=== PATIENT | male | born 1940 | race Caucasian/White ===

== ENCOUNTER → 2016-12-17 | Outpatient (CLI) | payer MEDICARE, OTHER ==
[~2016-12-17] MED LIST: ALLOPURINOL300 MG PO; ASPIRIN81 M2 PO; AVALIDE 300-12.1 TAB PO; EC-NAPROSYN500 MG PO; HYDROCODONE-APA1 T30 PO; LISINOPRIL-HCTZ1 T14 PO; MELOXICAM15 MG PO; METOPROLOL ER PO; NABUMETONE PO; TOPROL XL PO; ZOCOR20 MG PO
--- NOTE | ~2016-12-17 | US37 ---
[facility] A Service of [place] & [facility] [place] RADIOLOGY TEXT RESULTS PATIENT: BESSY PLEITEZ LOCATION: SNIV : 42 UNIT #: [id number] AGE: [address]: Tomás Rodas MD SEX: M ORDER DR: [id number] [place] [id number] O MR#: [id number] Acc #: [id number] NAME: BESSY PLEITEZ. : 1940 SEX: M STUDY DATE/TIME: 12/17/2016 8:31 UNIT: [facility] ROOM: STUDY DESCRIPTION: US Carotid W/Doppler Bilateral Attending Physician: Tomás Rodas M.D. Referring Physician: Tomás Rodas M.D. Ordering Physician: Tomás Rodas M.D. Primary Care Physician: Tomás Rodas M.D. MEDICAL IMAGING REPORT This report is preliminary unless electronic signature is present. EXAM Carotid ultrasound 12/17/2016 HISTORY Calcification. Vertigo calcifications of left carotid. FINDINGS Real-time ultrasonography of the cervical carotid and vertebral arteries performed. Kat-scale color Doppler Doppler pulse-wave interrogation utilized. Carotid flow evaluated using methodology based upon NASCET criteria. Atherosclerotic plaques seen. Right common carotid artery, carotid bulb, proximal internal carotid artery, left carotid bulb and internal carotid artery. Peak systolic velocities on the right are as follows: Common carotid artery 0.708 m/sec, internal carotid artery 0.64 meters per second in proximal segment artery, external carotid artery 1.49 meters per second. Antegrade flow in the right vertebral artery. Right IC/CC ratio 0.7. On the left peak systolic velocities as follows: Common carotid artery 0.73 m/sec, internal carotid artery 1.28 meters per second in the distal segment of the artery, external carotid artery 0.97 m/sec. There is antegrade flow in the left vertebral artery. Left IC/CC ratio 0.7. The bilateral Doppler pulse waveforms are within normal limits. The appearance of the Doppler pulse-wave interrogation raises the possibility of irregular cardiac rhythm. Please correlate with formal EKG. IMPRESSION 1. 50% to 69% luminal narrowing suggested in the distal left internal carotid artery using methodology based upon NASCET criteria. 2. There is no evidence of hemodynamically significant luminal narrowing in the right cervical internal carotid artery. 3. Elevated peak systolic velocity in the right external carotid artery [facility]. [facility] A Service of [place] & [facility] [place] RADIOLOGY TEXT RESULTS PATIENT: BESSY PLEITEZ LOCATION: SN : 41 UNIT #: [id number] AGE: [address]: Tomás Rodas MD SEX: M ORDER DR: could be a reflection of hemodynamically significant luminal narrowing in the right external carotid artery. 4. Antegrade flow in both vertebral arteries. 5. Scattered atherosclerotic plaque bilaterally. 6. Appearance of the Doppler pulse-wave interrogation portion of the examination raises the possibility of irregular cardiac rhythm. Please correlate with clinical examination and formal EKG. Dictated by... Gage Hickman M.D. THIS IS AN ELECTRONICALLY VERIFIED REPORT Gage Hickman M.D. at 12/17/2016 6:04 PM CAROLINE/suresh TD: 12/17/2016 17:51 JOB #: [id number] MEDICAL IMAGING REPORT Page 1 of 1
== END | disposition home or self-care (01) ==
LOC: SNIV 08:26
DX: I65.22 Occlusion and stenosis of left carotid artery (principal); I65.23 Occlusion and stenosis of bilateral carotid arteries
CPT/HCPCS: 93880

== ENCOUNTER → 2017-01-14 | Outpatient (CLI) | payer MEDICARE, OTHER ==
--- NOTE | ~2017-01-14 | US11 ---
[facility] A Service [facility] RADIOLOGY TEXT RESULTS PATIENT: BESSY PLEITEZ LOCATION: [facility] : 41 UNIT #: [id number] AGE: [address]: Jarrett Borges MD SEX: M ORDER DR: [id number] [facility] [address] [place], [place] [address] [id number] O MR#: [id number] Acc #: [id number] NAME: BESSY PLEITEZ. : 1940 SEX: M STUDY DATE/TIME: 01/14/2017 8:49 UNIT: [facility] ROOM: STUDY DESCRIPTION: US Aorta Duplex Complete Attending Physician: Jarrett Borges M.D. Referring Physician: Jarrett Borges M.D. Ordering Physician: Jarrett Borges M.D. Primary Care Physician: Tomás Rodas M.D. MEDICAL IMAGING REPORT This report is preliminary unless electronic signature is present EXAM Ultrasound of the aorta, 01/14/2017. HISTORY Abdominal aortic aneurysm screening. FINDINGS High-resolution B-mode imaging and color flow Doppler analysis was performed of the abdominal aorta and iliac arteries in longitudinal and transverse views. The abdominal aorta measures 2.6 cm in greatest diameter in its proximal segment, 2.3 cm in greatest diameter in its mid segment and 2.3 cm in greatest diameter in its distal segment. The right common iliac artery measures about 10 mm in diameter. The left common iliac artery measures about 14 mm in diameter. There is no focal elevation of Doppler velocities at any level to indicate significant stenosis. IMPRESSION Normal examination of the abdominal aorta and iliac arteries. No aneurysm is demonstrated. Dictated by... Lev Jones M.D. THIS IS AN ELECTRONICALLY VERIFIED REPORT Lev Jones M.D. at 01/16/2017 7:41 AM SBS/bd TD: 01/14/2017 13:59 JOB #: [id number] MEDICAL IMAGING REPORT [facility] A Service [facility] RADIOLOGY TEXT RESULTS PATIENT: BESSY PLEITEZ [facility] #: [id number] : 41 UNIT #: [id number] AGE: [address]: Jarrett Borges MD SEX: M ORDER DR: Page 1 of 1 COPY
== END | disposition home or self-care (01) ==
LOC: CGUS 07:30
DX: I65.23 Occlusion and stenosis of bilateral carotid arteries (principal)
CPT/HCPCS: 93978

== ENCOUNTER → 2017-01-23 | Outpatient (CLI) | payer MEDICARE, OTHER ==
--- NOTE | ~2017-01-23 | TH ---
Unit #: [id number] #: [id number] Patient: BESSY PLEITEZ [id number] [facility]. [address] [address] [id number] O MR#: [id number] NAME: BESSY PLEITEZ : 1940 SEX: M STUDY DATE/TIME: 01/23/2017 UNIT: [facility] ROOM: STUDY DESCRIPTION: Exercise stress test - Nuclear Attending Physician: Darrick Jacobson M.D. Referring Physician: Darrick Jacobson M.D. Primary Care Physician: Tomás Rodas M.D. CARDIOLOGY REPORT PROCEDURE PERFORMED Exercise Cardiolite stress test - Nuclear portion. PROCEDURE Using technetium 99m-labeled Cardiolite, rest and stress SPECT images were obtained. Multiple SPECT images were obtained in various views, including horizontal and vertical long axis and short axis views of the left ventricle. Images were obtained by gated SPECT method. Patient was administered 10.60 mCi of Cardiolite at rest. Patient was administered 34.6 mCi of Cardiolite at peak exercise. Total exercise time is 7 minutes. On the stress images, there is a small area of mildly decreased tracer uptake activity inferiorly. The rest images also show a small area of mildly decreased tracer uptake activity inferiorly. Comparing the rest and stress images, there is no obvious stress-induced ischemia noted. There is a small area of predominantly fixed defect seen inferiorly of unclear significance. The left ventricular ejection fraction is calculated to be 60%. There is no focal wall motion abnormality seen. CONCLUSION 1. No obvious stress-induced ischemia noted. 2. There is a small area of predominantly fixed defect seen inferiorly of unclear significance. 3. The left ventricular ejection fraction is calculated to be 60%. 4. There is no focal wall motion abnormality seen. 5. Normal exercise Cardiolite stress test. 6. Technically limited study due to patient's body habitus. Clinical correlation is requested. Dictated by... Desean King TD: 01/23/2017 15:25 JOB #: [id number] Unit #: [id number] #: [id number] Patient: BESSY PLEITEZ CARDIOLOGY REPORT Page 1 of 1 X Cecy Rojas MD <ELECTRONICALLY SIGNED> 02/12/17 1524 CARDIOLOGY REPORT
--- NOTE | ~2017-01-23 | ST ---
Unit #: [id number] #: [id number] Patient: BESSY PLEITEZ [id number] [address] [address] [id number] O MR#: [id number] NAME: BESSY PLEITEZ : 1940 SEX: M STUDY DATE/TIME: 01/23/2017 UNIT: [facility] ROOM: STUDY DESCRIPTION: Exercise stress test Attending Physician: Darrick Jacobson M.D. Referring Physician: Darrick Jacobson M.D. Primary Care Physician: Tomás Rodas M.D. CARDIOLOGY REPORT PROCEDURE PERFORMED Exercise Cardiolite stress test. PROCEDURE BASELINE EKG: Sinus bradycardia, heart rate 52 beats per minute, questionable Q waves in V1, low voltage in V1 and 2, poor R wave progression, premature atrial contraction. Patient walked on the treadmill for 7 minutes utilizing Narinder protocol, achieving a workload of 7.60 METS. Ninety-two percent of maximum target heart rate achieved at 134 beats per minute with a maximum blood pressure response of 180/80 mmHg. EKG during the test was equivocal to baseline. No acute ischemic changes. The patient had no complaints of chest pain, palpitations or dizziness. Had increased shortness of breath and fatigue, which resolved in the recovery phase. It is noted patient still continued to have frequent PACs. IMPRESSION 1. Functional class 3 with a workload of 7.60 METS. 2. Patient walked for 7 minutes achieving 92% of maximum target heart rate at 134 beats per minute with a maximum blood pressure response of 180/80 mmHg. 3. EKG during the test was equivocal to baseline. No acute ischemic changes. 4. It is noted that patient's blood pressure decreased down to 143/79 mmHg at the end of recovery phase. 5. Patient had no complaints of chest pain, palpitations or dizziness. Had increased shortness of breath and fatigue, which resolved in recovery phase. 6. EKG during the test was equivocal to baseline. Did continue to have PACs. 7. Cardiolite was injected at maximum target heart rate. Radionuclide test pending. Please correlate with nuclear images. Dictated by... Kanika Lay A.P.R.NManuel for Desean King/jose enrique Unit #: [id number] #: [id number] Patient: BESSY PLEITEZ RAVEN TD: 01/23/2017 10:56 JOB #: [id number] CARDIOLOGY REPORT Page 1 of 1 X Kanika Lay APRN CARDIOLOGY REPORT
== END | disposition home or self-care (01) ==
LOC: CNUC 06:55
DX: I49.9 Cardiac arrhythmia, unspecified (principal); I10 Essential (primary) hypertension; I71.4 Abdominal aortic aneurysm, without rupture; I65.22 Occlusion and stenosis of left carotid artery; I77.9 Disorder of arteries and arterioles, unspecified; R94.39 Abnormal result of other cardiovascular function study; R06.02 Shortness of breath
CPT/HCPCS: 78452; 93017; A9500